=== PATIENT | male | born 1955 | race Caucasian/White ===

== ENCOUNTER 2017-05-26 13:23 | Inpatient (IN) | payer BC ==
[~2017-05-26] VITALS: Ht 175.3 cm; Wt 102.3 kg
[2017-05-26 13:34] VITALS: BP_SYST 190
[2017-05-26] MEDS ORDERED: NACL 0.9% 1,000 ML IV ONE ×2 (13:46→16:00)
[2017-05-26] MEDS ORDERED: KETOROLAC TROMETHAMINE 30 MG VIAL IVP ONE (14:00)
[2017-05-26 14:08] LABS: BASOPHILS % (AUTO) 0.3 % (0.0-2.0); EOSINOPHILS # (AUTO) 0.5 K/uL (0.0-0.4); HEMATOCRIT 44.1 % (36-54); HEMOGLOBIN 14.6 g/dL (14.0-18.0); LYMPHOCYTES # (AUTO) 1.6 K/uL (1.0-5.5); LYMPHOCYTES % (AUTO) 17.1 % (20.5-51.5); MEAN CORPUSCULAR HEMOGLOBIN 29 pg (27-31); MEAN CORPUSCULAR HGB CONC 33 % (32-36); MEAN CORPUSCULAR VOLUME 87 fL (79.0-98.0); MONOCYTES # (AUTO) 0.7 K/uL (0.0-1.0); MONOCYTES % (AUTO) 7.7 % (1.7-9.3); NEUTROPHILS # (AUTO) 6.4 K/uL (1.8-7.7); NEUTROPHILS % (AUTO) 69.9 % (40.0-70.0); PLATELET COUNT (AUTO) 228 K/uL (130-430); RED BLOOD CELL COUNT(AUTO) 5.08 MIL/uL (4.2-6.2); RED CELL DISTRIBUTION WIDTH 12.1 % (9.0-15.0); WHITE BLOOD COUNT (AUTO) 9.2 K/uL (4.8-10.8)
[2017-05-26 14:13] LABS: CALCIUM 8.8 mg/dL (8.4-11.0); CREATININE 0.79 mg/dL (0.55-1.30); POTASSIUM 3.6 mmol/L (3.5-5.1)
[2017-05-26 14:19] LABS: ALBUMIN 3.9 g/dL (3.4-4.8); TOTAL BILIRUBIN 0.7 mg/dL (0.0-1.0)
[2017-05-26] MEDS ORDERED: LIOT5TAB10 PO (14:51)
[2017-05-26] MEDS ORDERED: LEVO100T9 PO (14:51)
[2017-05-26] MEDS ORDERED: LIOT25TA11 PO (14:51)
[2017-05-26] MEDS ORDERED: TEMA7.5C PO (14:51)
[2017-05-26 16:00] VITALS: BP_SYST 166
[2017-05-26] MEDS ORDERED: cloNIDine HCL 0.1 MG TABLET PO PRN (16:00)
[2017-05-26] MEDS ORDERED: DOCUSATE SODIUM 100 MG CAPSULE PO PRN (16:00)
[2017-05-26] MEDS ORDERED: LORazepam 2 MG/ML VIAL IVP PRN (16:00)
[2017-05-26] MEDS ORDERED: ONDANSETRON HCL 4 MG/2 ML VIAL IVP PRN (16:00)
[2017-05-26] MEDS ORDERED: ACETAMINOPHEN 325 MG TABLET PO PRN (16:00)
[2017-05-26] MEDS ORDERED: POTASSIUM CHLORIDE 20 MEQ TAB.PRT.SR PO PRN (16:00)
[2017-05-26] MEDS ORDERED: MAGNESIUM SULFATE 50 ML IV PRN (16:00)
[2017-05-26] MEDS ORDERED: MORPHINE 2 MG/ML INJ. SYRINGE IVP PRN ×2 (16:00)
[2017-05-26] MEDS ORDERED: ZOLPIDEM TARTRATE 5 MG TABLET PO PRN (16:00)
[2017-05-26] MEDS ORDERED: ASPIRIN 81 MG TAB.CHEW PO ONE (16:45)
[2017-05-26 17:06] VITALS: BP_SYST 168
[2017-05-26 20:02] VITALS: BP_SYST 147
[2017-05-26] MEDS ORDERED: MUPIROCIN 2% TOPICAL OINTMENT 22 GM NS PRN (21:00)
[2017-05-26] MEDS: METOPROLOL TARTRATE 25 MG TABLET PO SCH (21:23)
[2017-05-26] MEDS: HEPARIN SODIUM,PORCINE 5000 UNITS/ML VIAL SUBCUT SCH (21:24)
[2017-05-26 23:52] VITALS: BP_SYST 142
[2017-05-27] MEDS: LEVOTHYROXINE SODIUM 0.1 MG TABLET PO SCH (06:02)
[2017-05-27 08:17] VITALS: BP_SYST 136
[2017-05-27] MEDS: PANTOPRAZOLE SODIUM 40 MG TAB PO SCH ×2 (08:50→21:07)
[2017-05-27] MEDS: HEPARIN SODIUM,PORCINE 5000 UNITS/ML VIAL SUBCUT SCH ×2 (08:51→21:00)
[2017-05-27] MEDS: METOPROLOL TARTRATE 25 MG TABLET PO SCH ×2 (08:51→21:07)
[2017-05-27 12:46] VITALS: BP_SYST 143
[2017-05-27 16:05] VITALS: BP_SYST 150
[2017-05-27] MEDS ORDERED: GOLYTELY / COLYTE SOLUTION 4 LITERS PO ONE (16:30)
[2017-05-27] MEDS ORDERED: ACETAMINOPHEN 325 MG TABLET PO ONE (17:45)
[2017-05-27 19:00] VITALS: BP_SYST 141
[2017-05-27 20:00] VITALS: BP_SYST 141
[2017-05-28 02:06] VITALS: BP_SYST 129
[2017-05-28] MEDS: LEVOTHYROXINE SODIUM 0.1 MG TABLET PO SCH (06:31)
[2017-05-28 08:00] VITALS: BP_SYST 134
[2017-05-28] MEDS ORDERED: POLY17PO4 PO (08:03)
[2017-05-28] MEDS ORDERED: PRO40 PO (08:03)
[2017-05-28] MEDS ORDERED: DOCU250C71 PEG (08:03)
[2017-05-28] MEDS: METOPROLOL TARTRATE 25 MG TABLET PO SCH (08:19)
[2017-05-28] MEDS: PANTOPRAZOLE SODIUM 40 MG TAB PO SCH (08:19)
[2017-05-28] MEDS: HEPARIN SODIUM,PORCINE 5000 UNITS/ML VIAL SUBCUT SCH (08:21)
[2017-05-28 09:38] VITALS: BP_SYST 134
== END 2017-05-28 10:15 | disposition home or self-care (01) | DRG 392 ==
LOC: SED 13:23 → STU 15:55
PROVIDERS: ADMIT General Practice; ATTEND General Practice
DX: K21.9 Gastro-esophageal reflux disease without esophagitis (principal); K76.89 Other specified diseases of liver; R16.0 Hepatomegaly, not elsewhere classified; E03.9 Hypothyroidism, unspecified; I10 Essential (primary) hypertension; K59.00 Constipation, unspecified; Z90.49 Acquired absence of other specified parts of digestive tract; Z87.891 Personal history of nicotine dependence
CPT/HCPCS: 36415; 71045; 76700-TC; 80053; 83690-TC; 83880; 84484; 85025; 93005; 96361; 96374; 99285; G0378; J1644; J1885; J2270; J7030

== ENCOUNTER 2017-12-18 07:00 | Day surgery (SDC) | payer BC ==
[~2017-12-18 07:00] MED LIST: DOCU250C71 PEG; LEVO100T9 PO; LIOT25TA11 PO; LIOT5TAB10 PO; POLY17PO4 PO; PRO40 PO; TEMA7.5C PO
== END 2017-12-18 09:50 | disposition home or self-care (01) ==
LOC: SMU 07:00 → SDS 07:00
PROVIDERS: ATTEND Internal Medicine Gastroenterology
DX: Z53.9 Procedure and treatment not carried out, unspecified reason (principal)